=== PATIENT | female | born 1940 | race Caucasian/White ===

== ENCOUNTER 2017-05-02 13:50 | Inpatient (IN) | payer MEDICARE, OTHER ==
[~2017-05-02] VITALS: Ht 172.7 cm; Wt 53.9 kg
[~2017-05-02 13:50] MED LIST: LEVO50TA7 PO
[2017-05-02] MEDS ORDERED: HYDR-4683 PO (14:37)
[2017-05-02] MEDS ORDERED: ALBU1AER4 IN (14:39)
[2017-05-02] MEDS ORDERED: ALPR0.25 PO (14:39)
[2017-05-02] MEDS ORDERED: FLUT100M IN (14:39)
[2017-05-02 15:19] LABS: Basophils # (auto) 0 uL; Basophils % (auto) 0.3 % (0.0-2.0); Eosinophils # (auto) 0.2 uL; Hematocrit 34.6 % (36.0-46.0); Hemoglobin 11.5 g/dL (12.2-16.2); Lymphocytes # (auto) 1.8 uL; Mean Corpuscular Hgb Conc. 33.2 g/dL (32.0-36.0); Monocytes # (auto) 0.8 uL; Neutrophils % (auto) 72.4 % (37.0-80.0)
[2017-05-02 15:20] LABS: Eosinophils % (auto) 1.8 % (0.0-7.0); Lymphocytes % (auto) 17.9 % (10.0-50.0); Mean Corpuscular Hemoglobin 31.1 pg (28.0-32.0); Mean Corpuscular Volume 93.6 fL (80.0-100.0); Monocytes % (auto) 7.6 % (0.0-12.0); Neutrophils # (auto) 7.2 uL; Platelet Count (auto) 454 10^3/uL (140-450); Red Cell Distribution Width 12.9 % (11.8-14.3)
[2017-05-02 15:32] LABS: INR 1.13 (0.9-1.15); Partial Thromboplastin Time 31.9 sec (22.64-33.71); Prothrombin Time 12.3 sec (9.37-12.3)
[2017-05-02 15:42] LABS: BUN/Creatinine Ratio 14.9; Calcium 8.5 mg/dL (8.5-10.1); Potassium 3.5 mmol/L (3.5-5.1)
[2017-05-02] MEDS ORDERED: ALBUTEROL SULF 2.5 MG/0.5ML(0.5%) NEB SOLN NEB PRN (16:45)
[2017-05-02] MEDS ORDERED: MORPHINE SULFATE 4 MG/ML SYR/VIAL IV PRN (17:00)
[2017-05-02] MEDS: MORPHINE SULF INJ 2 MG/ML SYRINGE 1ML IV PRN (20:03)
[2017-05-03] MEDS: MORPHINE SULF INJ 2 MG/ML SYRINGE 1ML IV PRN ×3 (00:04→20:00)
[2017-05-03] MEDS: ALPRAZolam 0.25 MG TAB PO PRN (00:11)
[2017-05-03] MEDS ORDERED: diphenhdrAMINE HCL 50 MG/1 ML VL IV ONE (02:00)
[2017-05-03] MEDS ORDERED: HALOPERIDOL LACTATE 5 MG/ML INJ VIAL IM ONE (03:00)
[2017-05-03 05:34] VITALS: BP 129/60
[2017-05-03] MEDS: LEVOTHYROXINE SODIUM 50 MCG TAB PO SCH (06:57)
[2017-05-03] MEDS ORDERED: fentaNYL CITRATE 100 MCG/2 ML VL ONE (09:44)
[2017-05-03] MEDS ORDERED: MIDAZOLAM HCL 1MG/1ML-2 ML VIAL ONE (09:44)
[2017-05-03] MEDS ORDERED: DEXAMETHASONE SOD PHOS 10MG/1ML VIAL INJ ONE (09:44)
[2017-05-03] MEDS ORDERED: fentaNYL CITRATE 5 ML ONE (09:44)
[2017-05-03] MEDS ORDERED: MEPERIDINE HCL (50 MG/ML) 1 ML VIAL ONE (09:45)
[2017-05-03] MEDS ORDERED: PROPOFOL 10 MG/ML 20 ML IV ONE (09:45)
[2017-05-03] MEDS ORDERED: ceFOXitin 2GM/100ML 100 ML IV ONE (09:45)
[2017-05-03] MEDS ORDERED: GLYCOPYRROLATE 0.2 MG/ML 1ML VIAL ONE (11:17)
[2017-05-03] MEDS ORDERED: NEOSTIGMINE 1 MG/ML INJ (10mg/10ML VIAL) ONE (11:17)
[2017-05-03] MEDS: LIDOCAINE 1% HCL (LOCAL ANESTH.) INJ 20ML MDV ONE ×2 (11:35→13:45)
[2017-05-03] MEDS: BUPIVACAINE 0.25% INJ 50ML VIAL ONE ×2 (11:35→13:45)
[2017-05-03] MEDS ORDERED: ePHEDrine SULFATE 50 MG/ML AMP IV PRN (12:00)
[2017-05-03] MEDS ORDERED: MIDAZOLAM HCL 1MG/1ML-2 ML VIAL IV PRN (12:00)
[2017-05-03] MEDS ORDERED: ONDANSETRON HCL 4 MG/2 ML VIAL IV ONE (12:00)
[2017-05-03] MEDS ORDERED: KETOROLAC TROMETH 30 MG/ML 1ML VIAL IV ONE (12:00)
[2017-05-03] MEDS ORDERED: LABETALOL HCL 5 MG/ML 4ML SYRINGE IV PRN (12:00)
[2017-05-03] MEDS ORDERED: MORPHINE SULF INJ 2 MG/ML SYRINGE 1ML IV ONE (12:00)
[2017-05-03] MEDS: HYDROmorphone HCL 2 MG/ML VL IV PRN ×2 (12:10→12:20)
[2017-05-03] MEDS: HYDROcodone-ACET 5/325MG TAB PO PRN (22:24)
[2017-05-04] MEDS: MORPHINE SULF INJ 2 MG/ML SYRINGE 1ML IV PRN ×4 (00:54→20:38)
[2017-05-04 02:56] VITALS: BP 118/67
[2017-05-04] MEDS: LEVOTHYROXINE SODIUM 50 MCG TAB PO SCH (07:05)
[2017-05-04] MEDS: HYDROcodone-ACET 5/325MG TAB PO PRN ×2 (07:05→12:57)
[2017-05-04] MEDS: SODIUM CHLORIDE 0.9% 1,000 ML IV SCH (14:45)
[2017-05-04] MEDS: DOCUSATE SOD 100 MG CAP PO SCH (20:39)
[2017-05-04] MEDS: ALPRAZolam 0.25 MG TAB PO PRN (20:39)
[2017-05-04 22:00] VITALS: BP 145/81
[2017-05-05 04:43] VITALS: BP 136/94
[2017-05-05 04:44] VITALS: BP 154/94
[2017-05-05 06:15] LABS: Basophils # (auto) 0 uL; Basophils % (auto) 0.1 % (0.0-2.0); Eosinophils # (auto) 0 uL; Eosinophils % (auto) 0.1 % (0.0-7.0); Hematocrit 38.2 % (36.0-46.0); Hemoglobin 12.7 g/dL (12.2-16.2); Lymphocytes # (auto) 0.9 uL; Lymphocytes % (auto) 8.9 % (10.0-50.0); Mean Corpuscular Hemoglobin 30.4 pg (28.0-32.0); Mean Corpuscular Hgb Conc. 33.2 g/dL (32.0-36.0); Mean Corpuscular Volume 91.4 fL (80.0-100.0); Monocytes # (auto) 0.8 uL; Monocytes % (auto) 7.8 % (0.0-12.0); Neutrophils # (auto) 8.8 uL; Neutrophils % (auto) 83.1 % (37.0-80.0); Nucleated Red Blood Cells % 0.1 %; Platelet Count (auto) 498 10^3/uL (140-450); Red Blood Cells 4.18 10^6/uL (4.0-5.20); Red Cell Distribution Width 12.9 % (11.8-14.3); White Blood Cell 10.6 10^3/uL (4.4-10.8)
[2017-05-05] MEDS: LEVOTHYROXINE SODIUM 50 MCG TAB PO SCH (06:31)
[2017-05-05 06:32] LABS: BUN/Creatinine Ratio 14.3; Potassium 3.6 mmol/L (3.5-5.1)
[2017-05-05 06:33] LABS: Calcium 8.8 mg/dL (8.5-10.1)
[2017-05-05] MEDS: SODIUM CHLORIDE 0.9% 1,000 ML IV SCH ×2 (06:35→09:28)
[2017-05-05] MEDS: DOCUSATE SOD 100 MG CAP PO SCH ×2 (09:28→21:55)
[2017-05-05] MEDS ORDERED: THIAMINE HCL 100 MG/ML 2ML VIAL IV ONE (14:00)
[2017-05-05 16:29] VITALS: BP 134/86
[2017-05-05] MEDS: BOOST PLUS 8 ounce PO SCH (17:30)
[2017-05-05] MEDS: ALPRAZolam 0.25 MG TAB PO PRN (20:02)
[2017-05-05 21:50] VITALS: BP 141/95
[2017-05-05] MEDS: MORPHINE SULF INJ 2 MG/ML SYRINGE 1ML IV PRN (23:20)
[2017-05-06] MEDS: HYDROcodone-ACET 5/325MG TAB PO PRN ×2 (00:35→13:46)
[2017-05-06 05:00] VITALS: BP 125/84
[2017-05-06 05:46] LABS: Basophils # (auto) 0 uL; Basophils % (auto) 0.2 % (0.0-2.0); Eosinophils # (auto) 0.1 uL; Hemoglobin 12.4 g/dL (12.2-16.2); Lymphocytes # (auto) 1.5 uL; Mean Corpuscular Hemoglobin 30.5 pg (28.0-32.0); Mean Corpuscular Hgb Conc. 33.4 g/dL (32.0-36.0); Mean Corpuscular Volume 91.2 fL (80.0-100.0); Monocytes # (auto) 1.2 uL; Monocytes % (auto) 12.2 % (0.0-12.0); Neutrophils # (auto) 6.8 uL; Neutrophils % (auto) 70.6 % (37.0-80.0); Nucleated Red Blood Cells % 0.1 %; Platelet Count (auto) 478 10^3/uL (140-450); Red Blood Cells 4.06 10^6/uL (4.0-5.20); Red Cell Distribution Width 13.1 % (11.8-14.3); White Blood Cell 9.6 10^3/uL (4.4-10.8)
[2017-05-06 06:00] LABS: BUN/Creatinine Ratio 16.8; Calcium 8.7 mg/dL (8.5-10.1); Potassium 3.3 mmol/L (3.5-5.1)
[2017-05-06] MEDS: LEVOTHYROXINE SODIUM 50 MCG TAB PO SCH (06:20)
[2017-05-06] MEDS: SODIUM CHLORIDE 0.9% 1,000 ML IV SCH ×2 (06:20→19:50)
[2017-05-06] MEDS: BOOST PLUS 8 ounce PO SCH ×3 (08:52→18:18)
[2017-05-06 09:00] VITALS: BP 125/92
[2017-05-06] MEDS: DOCUSATE SOD 100 MG CAP PO SCH ×2 (10:02→21:39)
[2017-05-06] MEDS: THIAMINE HCL 100 MG/ML 2ML VIAL IV SCH (10:02)
[2017-05-06] MEDS ORDERED: POTASSIUM CHL 20 Meq TABLET PO ONE (10:15)
[2017-05-06] MEDS ORDERED: LACTULOSE 20Gm/30ML SOLN PO ONE (10:15)
[2017-05-06 17:00] VITALS: BP 150/92
[2017-05-06] MEDS: ALPRAZolam 0.25 MG TAB PO PRN (21:39)
[2017-05-06 21:58] VITALS: BP 150/92
[2017-05-06 22:15] VITALS: BP 153/95
[2017-05-07] MEDS: MORPHINE SULF INJ 2 MG/ML SYRINGE 1ML IV PRN ×2 (03:19→13:18)
[2017-05-07 05:57] VITALS: BP 109/69
[2017-05-07] MEDS: LEVOTHYROXINE SODIUM 50 MCG TAB PO SCH (06:41)
[2017-05-07] MEDS: BOOST PLUS 8 ounce PO SCH ×3 (08:15→18:13)
[2017-05-07] MEDS: SODIUM CHLORIDE 0.9% 1,000 ML IV SCH ×2 (09:10→22:30)
[2017-05-07] MEDS: DOCUSATE SOD 100 MG CAP PO SCH ×2 (10:00→22:01)
[2017-05-07] MEDS: THIAMINE HCL 100 MG/ML 2ML VIAL IV SCH (10:17)
[2017-05-07 10:23] VITALS: BP 143/77
[2017-05-07 14:09] VITALS: BP 150/80
[2017-05-07 16:39] VITALS: BP 144/82
[2017-05-07 22:00] VITALS: BP 148/101
[2017-05-07] MEDS: ALPRAZolam 0.25 MG TAB PO PRN (22:02)
[2017-05-08 05:00] VITALS: BP 155/102
[2017-05-08] MEDS: LEVOTHYROXINE SODIUM 50 MCG TAB PO SCH (06:43)
[2017-05-08 07:44] VITALS: BP 162/104
[2017-05-08 08:00] VITALS: BP 128/90
[2017-05-08] MEDS: MORPHINE SULF INJ 2 MG/ML SYRINGE 1ML IV PRN (08:26)
[2017-05-08] MEDS: BOOST PLUS 8 ounce PO SCH ×2 (08:33→13:06)
[2017-05-08 08:36] VITALS: BP 128/90
[2017-05-08] MEDS: THIAMINE HCL 100 MG/ML 2ML VIAL IV SCH (11:09)
[2017-05-08] MEDS: DOCUSATE SOD 100 MG CAP PO SCH (11:09)
[2017-05-08] MEDS: SODIUM CHLORIDE 0.9% 1,000 ML IV SCH (13:06)
[2017-05-08 14:47] VITALS: BP 152/91
[2017-05-08 18:08] VITALS: BP 150/91
[2017-05-08] MEDS: HYDROcodone-ACET 5/325MG TAB PO PRN (20:37)
== END 2017-05-08 21:00 | DRG 656 ==
LOC: SUR 13:50 → TELE-WESTW 13:51
PROVIDERS: ADMIT Urology; ATTEND Internal Medicine
PROC: 07BD0ZX Excision of Aortic Lymphatic, Open Approach, Diagnostic (ICD-10-PCS; 2017-05-03)
PROC: 0TT10ZZ Resection of Left Kidney, Open Approach (ICD-10-PCS; principal; 2017-05-03 09:51)
DX: C64.2 Malignant neoplasm of left kidney, except renal pelvis (principal); G92 Toxic encephalopathy; F10.239 Alcohol dependence with withdrawal, unspecified; J44.9 Chronic obstructive pulmonary disease, unspecified; E03.9 Hypothyroidism, unspecified; F41.9 Anxiety disorder, unspecified; I10 Essential (primary) hypertension; I25.10 Atherosclerotic heart disease of native coronary artery without angina pectoris; G89.29 Other chronic pain; M54.5 Low back pain; Z79.899 Other long term (current) drug therapy; Z87.891 Personal history of nicotine dependence; Z90.49 Acquired absence of other specified parts of digestive tract
CPT/HCPCS: 36415; 80048; 85025; 85610; 85730; 86850; 86900; 86901; 86920; 88341; J0694; J1100; J1885; J2001; J2250; J2704; J3490